=== PATIENT | male | born 1940 | race Caucasian/White ===

== ENCOUNTER 2016-04-20 02:18 | Emergency (ER) | payer OTHER, MEDICARE ==
[~2016-04-20] VITALS: Ht 167.6 cm; Wt 75.0 kg
[~2016-04-20 02:18] MED LIST: ENDOCET 5-3251 EACH PO; ENDURON5 MG PO; FARXIGA10 MG PO; FLAGYL500 MG PO; K-DUR10 MEQ PO; K-DUR20 MEQ PO; KETOCONAZOLE60 GM TP; LOPRESSOR50 MG PO; LOSARTAN POTAS100 MG PO; METFORMIN HCL500 MG PO; METRONIDAZOLE500 MG PO; ROCEPHIN 2 GM VI2 GM IM; ZOCOR40 MG PO
[2016-04-20] MEDS ORDERED: CLOTRIM ANTIFUN15 GM TP (03:50)
[2016-04-20] MEDS ORDERED: CIPRO500 MG PO (03:50)
[2016-04-20 03:56] LABS: COLOR RED ((YELLOW)); LEUKOCYTES NEGATIVE; NITRITE NEGATIVE
[2016-04-20 03:57] LABS: ADD MIUA? YES; BILIRUBIN SMALL; BLOOD LARGE; GLUCOSE (STRIP) NEGATIVE; KETONES TRACE; PROTEIN (STRIP) 300; UROBILINOGEN 0.2 MG/DL (0.2-1.0)
[2016-04-20 03:59] LABS: BACTERIA 2+; EPITHELIAL CELLS 1+; MUCUS 2+; RED BLOOD CELLS TNTC /HPF (0-5); UCUL ADDED? NO; WHITE BLOOD CELLS 0-5 /HPF (0-5)
[2016-04-20 04:00] LABS: CASTS PRESENT /LPF; CRYSTALS NONE SEEN; HYALINE CASTS 0-5 /LPF
[2016-04-20 04:25] VITALS: BP 149/76
== END 2016-04-20 04:26 | disposition home or self-care (01) ==
LOC: EME 02:18
DX: N39.0 Urinary tract infection, site not specified (principal); E11.9 Type 2 diabetes mellitus without complications; E78.5 Hyperlipidemia, unspecified; I10 Essential (primary) hypertension
CPT/HCPCS: 81003; 87077; 87086; 87186; 99281; 99283

== ENCOUNTER 2016-12-18 18:49 | Inpatient (IN) | payer OTHER, MEDICARE ==
[~2016-12-18] VITALS: Ht 167.6 cm; Wt 83.2 kg
[~2016-12-18 18:49] MED LIST changes: +CIPRO500 MG PO; +CLOTRIM ANTIFUN15 GM TP
[2016-12-18] MEDS ORDERED: LOSARTAN-HCTZ1 EAC1 PO (20:15)
[2016-12-18] MEDS ORDERED: POTASSIUM CHLO10 ME4 PO (20:15)
[2016-12-18 20:39] LABS: EOSINOPHIL (%) 1.1 % (0-5); EOSINOPHIL COUNT 0.1 K/uL (0-0.3); IMMATURE GRANULOCYTE (%) 0.3 % (0.0-0.7); INSTRUMENT ABS NEUTROPHIL CT 5.2 K/uL; LYMPHOCYTE COUNT 1.4 K/uL (1.0-2.8); MCHC 35.5 G/DL (30.0-36.0); MCV 90.3 FL (86-99); MEAN PLAT.VOLUME 10.4 uM^3 (9.0-12.4); MONOCYTE (%) 8.5 % (3-12); MONOCYTE COUNT 0.6 K/uL (0-0.8); NEUTROPHIL (%) 70.9 % (45-76); NEUTROPHIL COUNT 5.2 K/uL (1.8-6.4); PLATELET COUNT 194 K/uL (156-360); RBC DIS.WIDTH-CV 12.9 % (11.8-14.6); RBC DIS.WIDTH-SD 42.3 % (39-53); RED BLOOD COUNT 4.65 M/uL (4.00-5.50); WHITE BLOOD COUNT 7.4 K/uL (4.1-10.2)
[2016-12-18 20:44] LABS: ADD MIUA? YES; BILIRUBIN NEGATIVE; BLOOD MODERATE; COLOR RED ((YELLOW)); GLUCOSE (STRIP) >=500; KETONES NEGATIVE; LEUKOCYTES NEGATIVE; NITRITE NEGATIVE; PROTEIN (STRIP) 100; SPECIFIC GRAVITY 1.026 (1.000-1.030); UROBILINOGEN 0.2 MG/DL (0.2-1.0)
[2016-12-18 20:49] LABS: RED BLOOD CELLS TNTC /HPF (0-5)
[2016-12-18 20:50] LABS: INTER. NORMALIZED RATIO 1.1
[2016-12-18 20:53] LABS: BACTERIA 1+ /HPF; EPITHELIAL CELLS NONE SEEN /HPF; MUCUS TRACE /LPF; UCUL ADDED? YES; WHITE BLOOD CELLS RARE /HPF (0-5)
[2016-12-18 21:02] LABS: CHLORIDE 105 mEq/L (99-109); POTASSIUM 3.3 mEq/L (3.7-5.4); SODIUM 139 mEq/L (136-147)
[2016-12-18 21:03] LABS: GLUCOSE 169 mg/dL (70-99)
[2016-12-18 21:05] LABS: ANION GAP 13 MEQ/L (2-14)
[2016-12-18 21:07] LABS: GFR ESTIMATE (CALCULATED) > 59 mL/min/
[2016-12-18 21:08] LABS: UREA NITROGEN (BUN) 24 mg/dL (9-23)
[2016-12-18] MEDS ORDERED: LO-DOSE ASPIRIN81 M2 PO (21:56)
[2016-12-19] VITALS (7 sets, daily range): BP systolic 108–142; BP diastolic 68–94
[2016-12-19 05:51] LABS: POINT-OF-CARE METER ID UU13113725
[2016-12-19 06:25] LABS: HEMATOCRIT 39.6 % (38.0-50.0); MCH 32.2 PG (29.0-34.0); MCHC 34.6 G/DL (30.0-36.0); MCV 93.2 FL (86-99); PLATELET COUNT 160 K/uL (156-360); RBC DIS.WIDTH-CV 13.2 % (11.8-14.6); RBC DIS.WIDTH-SD 45.1 % (39-53); RED BLOOD COUNT 4.25 M/uL (4.00-5.50); WHITE BLOOD COUNT 8.1 K/uL (4.1-10.2)
[2016-12-19 06:43] LABS: ANION GAP 9 MEQ/L (2-14); CHLORIDE 101 MEQ/L (99-109); GFR ESTIMATE (CALCULATED) > 59 mL/min/; POTASSIUM 3.2 MEQ/L (3.7-5.4); SAMPLE HEMOLYSIS CHECK 0; SAMPLE ICTERIC CHECK 0; SAMPLE LIPEMIA CHECK 0; SODIUM 138 MEQ/L (136-147); UREA NITROGEN (BUN) 15 mg/dL (9-23)
[2016-12-19 06:47] LABS: GLUCOSE 103 mg/dL (70-99)
[2016-12-19 11:36] LABS: POINT-OF-CARE METER ID UU13113725
[2016-12-19 16:49] LABS: POINT-OF-CARE METER ID UU13113725
[2016-12-19 20:59] LABS: POINT-OF-CARE METER ID UU13113725
[2016-12-20 02:40] VITALS: BP 113/64
[2016-12-20 05:42] LABS: POINT-OF-CARE METER ID UU13113725
[2016-12-20 07:46] VITALS: BP 126/63
[2016-12-20 11:28] LABS: POINT-OF-CARE METER ID UU13113725
[2016-12-20 11:44] VITALS: BP 124/70
[2016-12-20 16:20] LABS: POINT-OF-CARE METER ID UU13113725
[2016-12-20 16:32] VITALS: BP 120/60
[2016-12-20 21:31] LABS: POINT-OF-CARE METER ID UU13113725
[2016-12-20 23:29] VITALS: BP 135/68
[2016-12-21 06:06] LABS: POINT-OF-CARE METER ID UU13113725
[2016-12-21 06:51] LABS: HEMATOCRIT 36.6 % (38.0-50.0); MCHC 33.9 G/DL (30.0-36.0); MCV 94.3 FL (86-99); MEAN PLAT.VOLUME 11.1 uM^3 (9.0-12.4); PLATELET COUNT 173 K/uL (156-360); RBC DIS.WIDTH-CV 13.2 % (11.8-14.6); RBC DIS.WIDTH-SD 45.2 % (39-53); RED BLOOD COUNT 3.88 M/uL (4.00-5.50); WHITE BLOOD COUNT 17.3 K/uL (4.1-10.2)
[2016-12-21 07:22] VITALS: BP 102/56
[2016-12-21 07:48] LABS: ANION GAP 9 MEQ/L (2-14); CHLORIDE 99 MEQ/L (99-109); GFR ESTIMATE (CALCULATED) 52 mL/min/; POTASSIUM 3.6 MEQ/L (3.7-5.4); SAMPLE HEMOLYSIS CHECK 0; SAMPLE ICTERIC CHECK 0; SAMPLE LIPEMIA CHECK 0; SODIUM 137 MEQ/L (136-147); UREA NITROGEN (BUN) 17 mg/dL (9-23)
[2016-12-21 07:49] LABS: GLUCOSE 193 mg/dL (70-99)
[2016-12-21 10:50] LABS: POINT-OF-CARE METER ID UU13113725
[2016-12-21 11:36] VITALS: BP 100/50
[2016-12-21] MEDS ORDERED: DITROPAN5 MG PO (13:00)
[2016-12-21] MEDS ORDERED: CIPRO500 MG PO (13:00)
[2016-12-21] MEDS ORDERED: PROSCAR5 MG PO (13:01)
[2016-12-21] MEDS ORDERED: FLOMAX0.4 MG PO (13:01)
[2016-12-21] MEDS ORDERED: TRAMADOL HCL50 MG PO (13:07)
== END 2016-12-21 15:27 | disposition home health service (06) | DRG 696 ==
LOC: EME 18:49 → EDOF 22:54 → 5EAST 22:54 → ENRESERV 22:56 → 5EAST 12-19 00:03 → ENPENDDIS 12-21 → 5EAST 12-21 15:27
PROVIDERS: Emergency Medicine; Internal Medicine
DX: R31.0 Gross hematuria (principal); N40.0 Benign prostatic hyperplasia without lower urinary tract symptoms; N32.89 Other specified disorders of bladder; I10 Essential (primary) hypertension; E11.9 Type 2 diabetes mellitus without complications; E78.5 Hyperlipidemia, unspecified; K21.9 Gastro-esophageal reflux disease without esophagitis; Z79.84 Long term (current) use of oral hypoglycemic drugs; Z90.79 Acquired absence of other genital organ(s)
CPT/HCPCS: 74177; 80048; 81003; 82948; 85025; 85027; 85610; 87086 GA; 99281; 99285; J0696; J1815; J2270; J7040; J7050; S0028

== ENCOUNTER → 2016-12-29 | Outpatient (CLI) | payer MEDICARE ==
[~2016-12-29] MED LIST changes: +DITROPAN5 MG PO; +FLOMAX0.4 MG PO; +LO-DOSE ASPIRIN81 M2 PO; +LOSARTAN-HCTZ1 EAC1 PO; +POTASSIUM CHLO10 ME4 PO; +PROSCAR5 MG PO; +TRAMADOL HCL50 MG PO
== END | disposition home or self-care (01) ==
LOC: CDC 15:51
DX: Z01.810 Encounter for preprocedural cardiovascular examination (principal); R00.0 Tachycardia, unspecified
CPT/HCPCS: 93000